=== PATIENT | male | born 1970 | race American Indian/Alaskan Native ===

== ENCOUNTER 2022-07-10 07:51 | Emergency (ER) | payer SELFPAY ==
[2022-07-10] MEDS ORDERED: dexAMETHasone 4 MG/ML VIAL IM ONE (09:32)
--- NOTE | 2022-07-10 09:33 | Emergency Department Report ---
ED Lower Extremity HPI - General Chief Complaint: Extremity Problem,Nontraumatic Stated Complaint: GOUT R KNEE Time Seen by Provider: 07/10/22 09:32 Source: patient, EMS Mode of arrival: Stretcher Limitations: No Limitations - History of Present Illness Initial Comments: 52 YO COMES TO ER WITH LEFT HAND AND RIGHT KNEE PAIN A/C GOUT NO FALL OR TRAUMA HAS NO PCP NOW AMBULATORY AND NEUROVASC INTACT MD Complaint: other -: Gradual, days(s) Place: home Severity scale (0 -10): 3 Improves With: nothing Worsens With: nothing - Related Data Previous Rx's Medication Instructions Recorded Last Taken Type Colchicine 0.6 mg PO DAILY #11 07/10/22 Unknown Rx Ibuprofen [Motrin] 800 mg PO Q8HR PRN #30 tablet 07/10/22 Unknown Rx predniSONE [Deltasone] 20 mg PO DAILY #5 tablet 07/10/22 Unknown Rx Allergies Allergy/AdvReac Type Severity Reaction Status Date / Time No Known Allergies Allergy Verified 07/10/22 07:53 ED Review of Systems ROS: Stated complaint: GOUT R KNEE Other details as noted in HPI Comment: All other systems reviewed and negative ED Past Medical Hx - Past Medical History Previous Medical History?: Yes Additional medical history: GOUT - Surgical History Past Surgical History?: No - Family History Family history: no significant - Social History Smoking Status: Never Smoker Substance Use Type: None - Medications Home Medications: Home Medications Medication Instructions Recorded Confirmed Last Taken Type Colchicine 0.6 mg PO DAILY #11 07/10/22 Unknown Rx Ibuprofen [Motrin] 800 mg PO Q8HR PRN #30 tablet 07/10/22 Unknown Rx predniSONE [Deltasone] 20 mg PO DAILY #5 tablet 07/10/22 Unknown Rx ED Physical Exam - General Limitations: No Limitations General appearance: alert, in no apparent distress - Head Head exam: Present: atraumatic, normocephalic - Eye Eye exam: Present: normal appearance - ENT ENT exam: Present: mucous membranes moist - Neck Neck exam: Present: normal inspection - Respiratory Respiratory exam: Present: normal lung sounds bilaterally. Absent: respiratory distress - Cardiovascular Cardiovascular Exam: Present: regular rate, normal rhythm. Absent: systolic murmur, diastolic murmur, rubs, gallop - GI/Abdominal GI/Abdominal exam: Present: soft, normal bowel sounds - Rectal Rectal exam: Present: deferred - Extremities Exam Extremities exam: Present: normal inspection - Expanded Upper Extremity Exam Left Elbow exam: Present: normal inspection Forearm Wrist exam: Present: normal inspection Hand Wrist exam: Present: tenderness, swelling - Expanded Lower Extremity Exam Right Knee exam: Present: tenderness, swelling - Back Exam Back exam: Present: normal inspection - Neurological Exam Neurological exam: Present: alert, oriented X3 - Psychiatric Psychiatric exam: Present: normal affect, normal mood - Skin Skin exam: Present: warm, dry, intact, normal color. Absent: rash ED Course Vital Signs 07/10/22 07:52 Pulse Rate 84 Respiratory 14 Rate Blood Pressure 184/90 [Left] O2 Sat by Pulse 98 Oximetry ED Lower Extremity MDM - Medical Decision Making Vital Signs 07/10/22 07:52 Pulse Rate 84 Respiratory 14 Rate Blood Pressure 184/90 [Left] O2 Sat by Pulse 98 Oximetry NO FALL OR TRAUMA A/C GOUT OFF MEDS NO PCP AT THIS TIME NEUROVASC INTACT [facility] IN ER DC HOME WITH RX AND FOLLOW UP. PT VERBALIZES UNDERSTANDING OF PLAN OF CARE RN ASKED TO DOCUMENT TEMP PRIOR TO D/C - Differential Diagnosis AC GOUT Critical care attestation.: If time is entered above; I have spent that time in minutes in the direct care of this critically ill patient, excluding procedure time. ED Disposition Clinical Impression: Gout Disposition: 01 HOME / SELF CARE / HOMELESS Is pt being admited?: No Does the pt Need Aspirin: No Condition: Stable Instructions: Low-Purine Eating Plan Additional Instructions: MEDS ORDERED TODAY FOLLOW UP WITH PCP REFERRAL BELOW DRINK A LOT OF WATER AVOID ALCOHOL Prescriptions: Colchicine 0.6 mg PO DAILY #11 predniSONE [Deltasone] 20 mg PO DAILY #5 tablet Ibuprofen [Motrin] 800 mg PO Q8HR PRN #30 tablet PRN Reason: Pain, Moderate (4-6) Referrals: ROMERO BRYSON MD [Primary Care Provider] - 3-5 Days Forms: Work/School Release Form(ED) Time of Disposition: 10:18
[2022-07-10 10:39] VITALS: BP 171/81
== END 2022-07-10 10:27 | disposition home or self-care (01) ==
LOC: ED 07:51
DX: M10.9 Gout, unspecified (principal); M25.561 Pain in right knee; M79.642 Pain in left hand; Z79.899 Other long term (current) drug therapy
CPT/HCPCS: 96372; 99283; J1100